=== PATIENT | male | born 1990 | race Two or more races ===

== ENCOUNTER 2021-04-09 04:27 | Emergency (ER) | payer OTHER ==
[~2021-04-09] VITALS: Ht 172.7 cm; Wt 78.5 kg
--- NOTE | 2021-04-09 05:08 | NUR ---
PATIENT RESTING COMFORTABLY NO COMPLAINTS AT THIS TIME
[2021-04-09 07:09] VITALS: BP 119/62
--- NOTE | 2021-04-09 07:09 | NUR ---
Patient discharged to home in stable condition. Written and verbal after care instructions given. Patient verbalizes understanding of instruction. Pt ambulated out of ED. VSS.
== END 2021-04-09 07:10 | disposition home or self-care (01) ==
LOC: ER 04:34
DX: F10.129 Alcohol abuse with intoxication, unspecified (principal); Y90.9 Presence of alcohol in blood, level not specified
CPT/HCPCS: 82962-TC